=== PATIENT | male | born 1990 | race Caucasian/White ===

== ENCOUNTER 2017-06-06 12:38 | Emergency (ER) | payer OTHER ==
[2017-06-06] MEDS ORDERED: IBUPROFEN 800 MG TABLET PO ONE (14:34)
[2017-06-06] MEDS ORDERED: HYDROCODONE/ACETAMINOPHEN 5-325 MG TABLET PO ONE (14:34)
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
[2017-06-06 15:42] VITALS: BP 132/77
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
--- NOTE | 2017-06-07 10:20 | EKG REPORT ---
SEVERITY:- OTHERWISE NORMAL ECG - SINUS ARRHYTHMIA, RATE [id number] : Confirmed by: Kaya Hodges 07-Jun-2017 10:20:10
== END 2017-06-06 15:37 | disposition home or self-care (01) ==
LOC: ER 12:38
DX: R07.9 Chest pain, unspecified (principal); M54.2 Cervicalgia; M54.9 Dorsalgia, unspecified; V53.5XXA Driver of pick-up truck or van injured in collision with car, pick-up truck or van in traffic accident, initial encounter; Z87.891 Personal history of nicotine dependence
CPT/HCPCS: 71046; 93005; 93010; 99284